=== PATIENT | female | born 2000 | race Caucasian/White ===

== ENCOUNTER 2018-10-10 19:28 | Emergency (ER) | payer BC ==
[2018-10-10] MEDS ORDERED: predniSONE 10 MG Tab PO ONE (20:14)
[2018-10-10] MEDS ORDERED: Famotidine 20 MG Tab PO ONE (20:15)
--- NOTE | 2018-10-10 20:21 | EDM.PDOC ---
ED HPI GENERAL MEDICAL PROBLEM - General Chief Complaint: Skin Complaint Stated Complaint: HIVES ON BODY SHORT OF BREATH Time Seen by Provider: 10/10/18 19:54 Source of Information: Reports: Patient History Limitations: Reports: No Limitations - History of Present Illness INITIAL COMMENTS - FREE TEXT/NARRATIVE: 18 y/0 female presents to ER with cc hives. She reports she ate huckleberries and broke out into a rash. She reports she has been taking Benadryl which has helped some but continues to have itching. She denies difficulty swallowing or breathing. She denies any chest pain or shortness of breath. She denies any fever or chills. She reports that yesterday she was in [place] traveling with her family. She reports no other family members are sick and have a rash like her. Patient does report that she is breast-feeding. Onset Date: 10/09/18 Onset Time: 12:00 Duration: Intermittent, Waxing/Waning Location: Reports: Abdomen, Back Quality: Reports: Other (itchy) Improves with: Reports: Medication Worsens with: Reports: None Associated Symptoms: Denies: Cough, Headaches, Nausea/Vomiting, Shortness of Breath, Syncope Treatments [employer]: Reports: Other (see below) (benadryl ) - Related Data Allergies Allergy/AdvReac Type Severity Reaction Status Date / Time hydrocodone Allergy Anaphylactic Verified 10/10/18 19:43 Shock Home Meds: Home Meds . [No Known Home Meds] 10/10/18 [History] Past Medical History - Past Health History Medical/Surgical History: Denies Medical/Surgical History Social & Family History - Tobacco Use Smoking Status *Q: Never Smoker - Caffeine Use Caffeine Use: Reports: Coffee - Recreational Drug Use Recreational Drug Use: No ED ROS GENERAL - Review of Systems Review Of Systems: See Below Constitutional: Denies: Fever, Chills, Decreased Appetite HEENT: Reports: No Symptoms Respiratory: Denies: Shortness of Breath Cardiovascular: Denies: Chest Pain Endocrine: Reports: No Symptoms GI/Abdominal: Reports: No Symptoms : Reports: No Symptoms Musculoskeletal: Reports: No Symptoms Skin: Reports: Pruritis Neurological: Reports: No Symptoms Psychiatric: Reports: No Symptoms Hematologic/Lymphatic: Reports: No Symptoms Immunologic: Reports: No Symptoms ED EXAM, SKIN/RASH Exam: See Below Exam Limited By: No Limitations General Appearance: Alert, WD/WN, No Apparent Distress Ears: Normal External Exam, Normal Canal, Hearing Grossly Normal, Normal TMs Nose: Normal Inspection, Normal Mucosa, No Blood Throat/Mouth: Normal Inspection, Normal Lips, Normal Teeth, Normal Gums, Normal Oropharynx, Normal Voice, No Airway Compromise Head: Atraumatic, Normocephalic Neck: Normal Inspection, Supple, Non-Tender, Full Range of Motion Respiratory/Chest: No Respiratory Distress, Lungs Clear, Normal Breath Sounds, No Accessory Muscle Use, Chest Non-Tender Cardiovascular: Normal Peripheral Pulses, Regular Rate, Rhythm, No Edema, No Gallop, No JVD, No Murmur, No Rub GI/Abdominal: Normal Bowel Sounds, Soft, Non-Tender, No Organomegaly, No Distention, No Abnormal Bruit, No Mass, Pelvis Stable Extremities: Normal Inspection, Normal Range of Motion, Non-Tender, No Pedal Edema, Normal Capillary Refill Neurological: Alert, Oriented, Normal Cognition, Normal Gait, Normal Reflexes, No Motor/Sensory Deficits Psychiatric: Normal Affect, Normal Mood Skin: Warm, Dry, Intact, Normal Color, Other (Generalized pruritus noted on upper posterior back and upper arms.) Lymphatic: No Adenopathy Course - Vital Signs Last Recorded V/S: Last Vital Signs Temp 98.3 F 10/10/18 19:45 Pulse 92 10/10/18 19:45 Resp 20 10/10/18 19:45 BP 121/80 10/10/18 19:45 Pulse Ox 100 10/10/18 19:45 - Orders/Labs/Meds Meds: Medications Discontinued Medications Generic Name Dose Route Start Last Admin Trade Name J Luisq PRN Reason Stop Dose Admin Famotidine 20 mg 10/10/18 20:15 10/10/18 20:23 Pepcid PO 10/10/18 20:16 20 mg ONETIME ONE Administration Prednisone 10 mg 10/10/18 20:14 10/10/18 20:23 Prednisone PO 10/10/18 20:15 10 mg ONETIME ONE Administration - Re-Assessments/Exams Free Text/Narrative Re-Assessment/Exam: 10/10/18 20:23 18-year-old female presents with chief complaints of hives that started yesterday after eating huckleberries. She received Prednisone, Pepcid and her condition improved. I will discharge home with instructions to continue take Benadryl as needed for itching and hives. I instructed her to follow up with her PCP as needed. Instructed to return to the ER for any new or acute worsening symptoms. Encouraged to come back to the ER for any new or acute worsening symptoms. Patient verbalized understanding and is comfortable with plan of care. Departure - Departure Time of Disposition: 20:27 Disposition: Home, Self-Care 01 Condition: Good Clinical Impression: Pruritic rash - Discharge Information *PRESCRIPTION DRUG MONITORING PROGRAM REVIEWED*: Not Applicable *COPY OF PRESCRIPTION DRUG MONITORING REPORT IN PATIENT DOM: Not Applicable Instructions: Pruritus Referrals: Sisi Chun MD [Primary Care Provider] - Forms: ED Department Discharge Additional Instructions: You have been diagnosis with hives. Continue to take Benadryl as needed for itching and rash. Follow up with your PCP. Return to the ER for any new or acute worsening symptoms.
== END 2018-10-10 20:47 | disposition home or self-care (01) ==
LOC: JD.ED 19:28
DX: L50.0 Allergic urticaria (principal); Z88.5 Allergy status to narcotic agent
CPT/HCPCS: 99282; A9270; 99283